=== PATIENT | male | born 1990 | race Caucasian/White ===

== ENCOUNTER 2019-12-08 14:16 | Emergency (ER) | payer SELFPAY ==
[~2019-12-08] VITALS: Ht 167.6 cm; Wt 86.6 kg
[2019-12-08 14:24] VITALS: Ht 167.6 cm; Wt 86.6 kg
[2019-12-08 15:40] VITALS: BP 163/100
== END 2019-12-08 15:40 | disposition home or self-care (01) ==
LOC: ED 14:16
DX: R05 Cough (principal); R50.9 Fever, unspecified; F17.210 Nicotine dependence, cigarettes, uncomplicated